=== PATIENT | female | born 1985 ===

== ENCOUNTER 2018-08-25 10:20 | Emergency (ER) | payer SELFPAY ==
--- NOTE | 2018-08-25 12:58 | UC ---
Abdominal Pain Female HPI - HPI Summary HPI Summary: The patient is a 32-year-old female with the acute onset of right lower quadrant abdominal pain that started on 08/23. The pain has been a constant 4- 5 out of 10. She has had no fever or chills. She has had no nausea /vomiting. She denies any UTI symptoms or vaginal discharge or itching. Denies any back pain. Tight has been good. I went in to see her at 12:50 PM. She stated she had a class by 1:00. The radiology department was notified and they said that there was no way that they could squeeze her in for an ultrasound today. She is pressure time she declines a pelvic exam. - History of Current Complaint Chief Complaint: UCAbdominalPain Stated Complaint: ABDOMINAL PAIN Time Seen by Provider: 08/25/18 12:48 Hx Obtained From: Patient Onset/Duration: Sudden Onset Timing: Constant Severity Initially: Moderate Severity Currently: Moderate Pain Intensity: 5 - declines analgesic Pain Scale Used: 0-10 Numeric Location: Discrete At: RLQ Radiates: No Character: Aching, Dull Aggravating Factor(s): Nothing Alleviating Factor(s): Nothing Associated Signs and Symptoms: Negative: Diaphoresis, Fever, Cough, Chest Pain, Dizzy, Back Pain, Constipation, Blood in Stool, Urinary Symptoms, Decreased Appetite, Vaginal Bleeding, Vaginal Discharge, Nausea, Vomiting, Diarrhea Allergies/Adverse Reactions: Allergies Allergy/AdvReac Type Severity Reaction Status Date / Time No Known Allergies Allergy Verified 08/25/18 11:24 Home Medications: Home Medications NK [No Home Medications Reported] 08/25/18 [History Confirmed 08/25/18] PMH/Surg Hx/FS Hx/Imm Hx Previously Healthy: Yes - Surgical History Surgical History: None - Family History Known Family History: Positive: Hypertension - Social History Alcohol Use: Occasionally Substance Use Type: None Smoking Status (MU): Never Smoked Tobacco Review of Systems Constitutional: Negative Skin: Negative Eyes: Negative ENT: Negative Respiratory: Negative Cardiovascular: Negative Gastrointestinal: Abdominal Pain Genitourinary: Negative Motor: Negative Neurovascular: Negative Musculoskeletal: Negative Neurological: Negative Psychological: Negative All Other Systems Reviewed And Are Negative: Yes Physical Exam Triage Information Reviewed: Yes Appearance: Well-Appearing, No Pain Distress, Well-Nourished Vital Signs: Initial Vital Signs Temp 98.4 F 08/25/18 11:20 Pulse 81 08/25/18 11:20 Resp 18 08/25/18 11:20 BP 108/61 08/25/18 11:20 Pulse Ox 100 08/25/18 11:20 Vital Signs Reviewed: Yes Eyes: Positive: Conjunctiva Clear ENT Exam: Normal ENT: Positive: Hearing grossly normal. Negative: Nasal congestion, Nasal drainage, Tonsillar exudate, Trismus, Hoarse voice Neck: Positive: Supple, Nontender Respiratory Exam: Normal Respiratory: Positive: Lungs clear, Normal breath sounds, No respiratory distress, No accessory muscle use Cardiovascular: Positive: RRR, No Murmur. Negative: Tachycardia, Bradycardia Abdomen Description: Positive: Soft. Negative: Nontender - slight RLQ abd tenderness, able to jump up and down with out pain, CVA Tenderness (R), CVA Tenderness (L) Bowel Sounds: Positive: Present Musculoskeletal: Positive: ROM Intact, No Edema Neurological: Positive: Alert Psychological Exam: Normal Skin Exam: Normal Abd Pain Female Course/Dx - Course Course Of Treatment: The patient was unable to wait for an ultrasound to rule in or rule out an ovarian cyst. She was intent on attending her classes this afternoon. She was advised to go to the emergency room for further evaluation especially if she developed fever, vomiting, or worsening pain. She is also given the name and number of the on-call [employer]. She was informed that if she returned here tomorrow morning there was a better chance of us being able to get her an ultrasound. - Differential Dx/Diagnosis Provider Diagnoses: abdominal pain of uncertain cause Discharge - Sign-Out/Discharge Documenting (check all that apply): Patient Departure All imaging exams completed and their final reports reviewed: No Studies - Discharge Plan Condition: Stable Disposition: HOME Patient Education Materials: Ovarian Cyst (ED), Acute Abdominal Pain (ED) Referrals: Sima Da Silva MD [Medical Doctor] - As Soon As Possible Additional Instructions: I suspect an ovarian cyst Please go directly to the ER if pain worsens/you develop a fever or start vomiting We were not able to do an ultrasound here today advil or aleve I suggest you see an [employer] PROFESSIONAL or return here so we can better evaluate your symptoms - Billing Disposition and Condition Condition: STABLE Disposition: Home
== END 2018-08-25 13:08 | disposition home or self-care (01) ==
LOC: UCEAST 10:20
DX: R10.31 Right lower quadrant pain (principal)
CPT/HCPCS: 81003; 84702; 99201; G0463